=== PATIENT | female | born 1995 | race African-American/Black ===

== ENCOUNTER → 2016-07-15 | Outpatient (CLI) | payer OTHER ==
--- NOTE | 2016-07-15 11:03 | RAD ---
Pelvic ultrasound, 07/15/2016: History: Pelvic cramps and pain Transabdominal scans were obtained. The patient refused transvaginal scanning. The uterus is within normal limits in size. It demonstrates a normal central uterine echo complex. The right ovary is visualized and is of normal size. It contains small follicular cysts. A normal left ovary is not identified. There is a large cyst present centered on the left extending into the lower abdomen. It measures 13.2 x 7.8 x 11.7 cm. No solid component is identified. There is a trace amount of free fluid in the pelvis. IMPRESSION: Large left adnexal cyst extending into the lower abdomen, likely of ovarian origin. Other less likely possibilities would include a peritoneal inclusion cyst or paraovarian cyst.
== END | disposition home or self-care (01) ==
LOC: US 09:43
PROVIDERS: ATTEND Physician Assistant Surgical
DX: N92.0 Excessive and frequent menstruation with regular cycle (principal)
CPT/HCPCS: 76856

== ENCOUNTER → 2016-08-19 | Outpatient (CLI) | payer OTHER ==
[~2016-08-19] MED LIST: IOHEXOL 300 MG/ML 75 ML VIAL IV ONE
--- NOTE | 2016-08-19 14:41 | RAD ---
Indication mass. The pelvis was evaluated. The abdomen was not. No oral contrast was administered. Approximately 75 cc of Omnipaque 300 was administered. Note is made of a pelvic ultrasound examination 07/15/2016 demonstrating a pelvic mass. Consistent with the finding on recent pelvic ultrasound is a large, predominantly homogeneous, low-density cystic mass measuring approximately 16 cm in length x 12 cm in width x 8 cm in depth. It is likely ovarian in origin. Duplication cyst would be an additional consideration. There is modest amount of free fluid in the pelvis. No additional finding is seen. IMPRESSION: Large, cystic, pelvic mass probably of ovarian origin. The findings are consistent with those demonstrated on recent pelvic ultrasound [facility] Compliance Statement: One or more of the following individualized dose reduction techniques were utilized for this examination: 1. Automated exposure control 2. Adjustment of the mA and/or kV according to patient size 3. Use of iterative reconstruction technique
== END | disposition home or self-care (01) ==
LOC: CT 06:54
PROVIDERS: ATTEND Physician Assistant Surgical
DX: R19.00 Intra-abdominal and pelvic swelling, mass and lump, unspecified site (principal)
CPT/HCPCS: 74170; Q9967